=== PATIENT | male | born 1940 | race Caucasian/White ===

== ENCOUNTER 2016-08-21 08:48 | Day surgery (SDC) | payer MEDICARE, OTHER ==
[~2016-08-21 08:48] MED LIST: CEFAZOLIN SODIUM 2 GRAM PREMIX 100 ML IV PRN; FENTANYL 100 MCG/2 ML VIAL ONE; IOPAMIDOL 300 (61%) 30 ML SDV ONE; MIDAZOLAM HCL 1 MG/ML 2ML VIAL ONE; OPIUM/BELLADONNA ALKALOIDS 1 EACH SUP PR ONE; SPINAL PROCEDURAL TRAY 1 EACH ONE
[2016-08-21] MEDS ORDERED: IV START KIT ONE (08:54)
[2016-08-21] MEDS ORDERED: LACTATED RINGERS 1,000 ML ONE (08:54)
[2016-08-21] MEDS ORDERED: PROPOFOL 20 ML IV ONE (10:16)
[2016-08-21] MEDS ORDERED: LIDOCAINE 2% (PRES FREE) 5 ML VIAL ONE (10:16)
[2016-08-21] MEDS ORDERED: HYDROMORPHONE HCL 1 MG/ML SYRINGE IV PRN (10:25)
[2016-08-21] MEDS ORDERED: NALOXONE HCL 0.4 MG/ML VIAL IV PRN (10:25)
[2016-08-21] MEDS ORDERED: ATROPINE SULFATE 0.4 MG/1 ML VIAL IV PRN (10:25)
[2016-08-21] MEDS ORDERED: PROMETHAZINE HCL 25 MG/ML VIAL IM PRN (10:25)
[2016-08-21] MEDS ORDERED: FENTANYL 100 MCG/2 ML VIAL IV PRN (10:25)
[2016-08-21] MEDS ORDERED: ONDANSETRON 4 MG/2ML 2 ML VIAL IV PRN ×2 (10:25→11:23)
[2016-08-21] MEDS ORDERED: LACTATED RINGERS 1,000 ML IV SCH (10:30)
[2016-08-21] MEDS ORDERED: HYDROCODONE/ACETAMINOPHEN 5/325MG TABLET PO PRN (11:23)
[2016-08-21] MEDS ORDERED: OPIUM/BELLADONNA ALKALOIDS 1 EACH SUP PR PRN (11:23)
[2016-08-21] MEDS ORDERED: MORPHINE SULFATE 2 MG/ML SYRINGE IV PRN (11:23)
[2016-08-21] MEDS ORDERED: PHENAZOPYRIDINE HCL 200 MG TABLET PO SCH (15:00)
--- NOTE | 2016-08-21 18:03 | OP ---
JEFE DELACRUZ [id number] DATE OF OPERATION: August 21, 2016 SURGEON: Christiano Joel M.D. ENVIRONMENTAL SERVICES TECH: None. ANESTHESIA: Spinal. PREOPERATIVE DIAGNOSIS: Recurrent chronic cystitis without infection and bladder pain. POSTOPERATIVE DIAGNOSIS: Recurrent chronic cystitis without infection and bladder pain. PROCEDURES: TRANSURETHRAL SAMPLING OF BLADDER LESIONS AND FULGURATION OF ULCERATED BLADDER LESION SITES. SPECIMENS: Fragments of bladder lesion from left lateral wall. 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 He responded to transurethral fulguration in September of 2015 but presented recently with recurrent pain and no urinary tract infection. He has tried several medications in the past to try to control this including steroids and methotrexate. He presents now for presumably repeat fulguration of bladder lesions. FINDINGS: The urethra is effectively normal. There is mild prostatic growth. Slight bladder neck elevation. Ureteral orifices normally disposed. The bladder wall is notable for two sites of ulceration and bright friable erythema on the mid posterior wall and on the left lateral wall extending upward toward the dome. The left sites appeared to have more extensive involvement by fresh erythematous urothelial tissue and this is where samples were obtained. The two sites were fulgurated, and the estimated area of the treatment was greater than 10 cm3 combined. PROCEDURE: The patient was identified and brought to the operating room where spinal anesthetic was applied. Then he was placed in the dorsal lithotomy position. The genital region was prepared and draped sterilely. We started with water as an irrigant and used a 21 Georgian rigid cystoscope. Findings were reported above. We connected a cauterizing biopsy forceps and obtained samples from the left lateral wall. We then used the cauterizing forceps to fulgurate the entire left-sided lesion and then returned to the posterior lesion. As expected, simple distention of the bladder did exacerbate local bleeding but this did increase our ability to identify the affected sites. Once bleeding was sufficiently controlled and the two large sites adequately treated. We removed the resectoscope and placed a 20 Georgian three-way irrigating catheter to gravity drainage with 10 mL of water in its balloon. Three-way saline irrigation was instituted. Estimated blood loss was less than 20 mL. No early complications. The patient tolerated the procedure well and was taken in stable condition to the post-anesthesia room. cc: Christiano Joel M.D. Bayron Prince M.D.
--- NOTE | 2016-08-23 16:23 | SURGPATH ---
[facility] [address] [place] [id number] Patient Name: JEFE DELACRUZ MR#: [id number] : 1940 Gender: M Specimen #: [id number] Collected: 08/21/2016 Received: 08/22/2016 Reported: 08/23/2016 Submitting Phys: IMELDA MEJIAS Copy To Phys: MITRA WANG [facility] Clinical History / Pre-Operative Diagnosis: Bladder tumor Specimen Source / Surgical Procedure Performed: Left wall bladder lesion Interpretation: URINARY BLADDER, LEFT WALL, BIOPSY: - CHRONIC CYSTITIS WITH REACTIVE EPITHELIAL CHANGES Electronically Signed Out Xi Briggs M.D. Gross Description: The specimen is received in formalin labeled with the patient's name and "left wall bladder". The specimen consists of a few fragments of yung soft tissue, 0.6 x 0.3 x 0.1 cm in aggregate. Submitted in toto in one cassette. BOY Kerr Microscopic Description: Sections show urothelial mucosa with chronic inflammation including numerous plasma cells and lymphocytes in the lamina propria. The overlying urothelium shows reactive changes. Most of the urothelium is partial thickness, with the umbrella layer stripped off, although focal intact urothelium is seen. A CK20 immunostain shows staining only of the umbrella cell layer, and does not show full-thickness staining. P53 immunostain shows only staining of the basal cells, without full-thickness nuclear staining. This supports reactive urothelium. No papillary neoplasm or carcinoma in-situ is seen. This case was reviewed at the intradepartmental pathology conference with concurrence of the interpretation by all the attendees. 1: [id number], 20966 N30.90
== END 2016-08-21 18:00 | disposition home or self-care (01) ==
LOC: SDC 08:48
PROVIDERS: ATTEND Urology
PROC: 0T5B8ZZ Destruction of Bladder, Via Natural or Artificial Opening Endoscopic (ICD-10-PCS; principal; 2016-08-21)
DX: N30.20 Other chronic cystitis without hematuria (principal); R39.89 Other symptoms and signs involving the genitourinary system; I10 Essential (primary) hypertension; E78.5 Hyperlipidemia, unspecified; I48.91 Unspecified atrial fibrillation; Z79.82 Long term (current) use of aspirin; K21.9 Gastro-esophageal reflux disease without esophagitis; Z87.440 Personal history of urinary (tract) infections
CPT/HCPCS: 52240; J3010; J2250; J7120; A9270